=== PATIENT | male | born 1975 | race Caucasian/White ===

== ENCOUNTER 2019-03-01 08:43 | Emergency (ER) | payer BC ==
[2019-03-01] MEDS: IBUPROFEN 800 MG TAB PO (09:42)
[2019-03-01] MEDS: BACITRACIN 0.5%/ZINC 28.35 GM OINT TOP (09:43)
== END 2019-03-01 09:50 | disposition home or self-care (01) ==
LOC: FTE 09:50
DX: S90.811A Abrasion, right foot, initial encounter (principal); V03.10XA Pedestrian on foot injured in collision with car, pick-up truck or van in traffic accident, initial encounter
CPT/HCPCS: 99282